=== PATIENT | female | born 1935 | race Hispanic/Latino ===

== ENCOUNTER 2016-12-03 13:36 | Emergency (ER) | payer MEDICARE, BC ==
[2016-12-03 13:46] VITALS: BMI 30.3
[2016-12-03 13:50] VITALS: BP 140/71; PULSE 78; RESP 19; TEMP 98.2; O2SAT 99
--- NOTE | 2016-12-12 15:06 | ED PDOC ---
Arrival/HPI - General Chief Complaint: Foreign Body Time Seen by Provider: 12/03/16 13:46 Historian: Patient - History of Present Illness Narrative History of Present Illness (Text): 12/03/16 14:00 Patient presents c/o foreign body in the R ear. States that "the dome" of her hearing aid become lodged inside since last night. Denies any fever, headache, ear pain, URI symptoms, rash, cough. Has no other complaints. PMD Black Past Medical History - Provider Review Nursing Documentation Reviewed: Yes - Infectious Disease Hx of Infectious Diseases: None - Cardiac Hx Cardiac Disorders: Yes Hx Hypertension: Yes - Pulmonary Hx Respiratory Disorders: No - Neurological Hx Neurological Disorder: No - HEENT Hx HEENT Disorder: Yes Hx Cataracts: Yes - Renal Hx Renal Disorder: No - Endocrine/Metabolic Hx Endocrine Disorders: Yes Hx Hyperthyroidism: Yes - Hematological/Oncological Hx Blood Disorders: No - Integumentary Hx Dermatological Disorder: No - Musculoskeletal/Rheumatological Hx Musculoskeletal Disorders: No - Gastrointestinal Hx Gastrointestinal Disorders: No - Genitourinary/Gynecological Hx Genitourinary Disorders: No - Psychiatric Hx Psychophysiologic Disorder: No Hx Depression: No Hx Emotional Abuse: No Hx Physical Abuse: No Hx Substance Use: No - Surgical History Other/Comment: knee sx. brain operation april 2014 - Anesthesia Hx Anesthesia: Yes Hx Anesthesia Reactions: No - Suicidal Assessment Feels Threatened In Home Enviroment: No Family/Social History - Physician Review Nursing Documentation Reviewed: Yes Family/Social History: No Known Family HX Smoking Status: Never Smoked Hx Alcohol Use: No Hx Substance Use: No Hx Substance Use Treatment: No Allergies/Home Meds Allergies/Adverse Reactions: Allergies No Known Allergies Allergy (Verified 12/03/16 13:45) Home Medications: Home Meds Medication Instructions Recorded Confirmed Aspirin 81 mg PO DAILY 03/20/12 12/03/16 Losartan Potassium 100 mg PO DAILY 03/20/12 12/03/16 Levothyroxine [Synthroid] 88 mcg PO DAILY 12/03/16 12/03/16 Review of Systems - Review of Systems Constitutional: Normal. absent: Fatigue, Weight Change, Fevers Eyes: Normal. absent: Vision Changes, Photophobia ENT: Normal, Other (FB in R ear). absent: Hearing Changes, Tinnitus, Rhinorrhea , Sinus Congestion Respiratory: Normal. absent: SOB, Cough, Sputum Physical Exam Vital Signs Reviewed: Yes Vital Signs Temp Pulse Resp BP Pulse Ox 12/03/16 13:49 98.2 F 78 19 140/71 99 Temperature: Afebrile Blood Pressure: Normal Pulse: Regular Respiratory Rate: Normal Appearance: Positive for: Well-Appearing, Comfortable Pain Distress: None Mental Status: Positive for: Alert and Oriented X 3 - Systems Exam Head: Present: Atraumatic, Normocephalic Pupils: Present: PERRL Extroacular Muscles: Present: EOMI Conjunctiva: Present: Normal. No: Injected Ears: Present: Normal, NORMAL TM, Normal Canal, Other (+ FB noted in the R ear canal). No: Erythema, TM Bulging, Fluid Pharnyx: Present: Normal. No: ERYTHEMA, EXUDATE Nose (External): Present: Atraumatic Nose (Internal): Present: Normal Inspection Neck: Present: Normal Range of Motion. No: Lymphadenopathy Respiratory/Chest: Present: Clear to Auscultation, Good Air Exchange. No: Respiratory Distress, Accessory Muscle Use, Wheezes, Rales, Retracting, Rhonchi Skin: Present: Warm, Dry, Normal Color. No: Rashes Medical Decision Making ED Course and Treatment: 12/03/16 14:00 81 yo F presents with FB in the R ear since yesterday. FB removed easily by PA using forceps. After removal of the FB, ear canal appears normal with no edema, no erythema, no exudate or discharge, TM is intact. - PA / [employer]ITION [employer]ER / Resident Statement MD/DO has reviewed & agrees with the documentation as recorded. Disposition/Present on Arrival - Present on Arrival Any Indicators Present on Arrival: No History of DVT/PE: No History of Uncontrolled Diabetes: No Urinary Catheter: No History of Decub. Ulcer: No History Surgical Site Infection Following: None - Disposition Have Diagnosis and Disposition been Completed?: Yes Diagnosis: Foreign body in ear Disposition: HOME/ ROUTINE Disposition Time: 14:00 Patient Plan: Discharge Condition: GOOD Discharge Instructions (ExitCare): Ear Foreign Body (ED) Print Language: SWEDISH Referrals: Parisa Church MD [Primary Care Provider] - Follow up with primary
== END 2016-12-03 14:32 | disposition home or self-care (01) ==
LOC: ED 13:36
DX: T16.1XXA Foreign body in right ear, initial encounter (principal); X58.XXXA Exposure to other specified factors, initial encounter; Y93.89 Activity, other specified; Y92.89 Other specified places as the place of occurrence of the external cause

== ENCOUNTER 2018-06-04 13:19 | Emergency (ER) | payer MEDICARE, BC ==
[2018-06-04 13:20] VITALS: BMI 30.3
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
[2018-06-04 13:46] VITALS: RESP 18; TEMP 98.2
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
[2018-06-04 16:22] VITALS: BP 160/77; PULSE 78; O2SAT 99
== END 2018-06-04 16:21 | disposition home or self-care (01) ==
LOC: ED 13:19
DX: M79.621 Pain in right upper arm (principal); I10 Essential (primary) hypertension